=== PATIENT | male | born 1965 | race Caucasian/White ===

== ENCOUNTER 2020-06-05 15:30 | Emergency (ER) | payer OTHER ==
[~2020-06-05] VITALS: Ht 185.4 cm; Wt 90.9 kg
[2020-06-05 15:42] VITALS: BP 138/93; Ht 185.4 cm; Wt 90.9 kg
[2020-06-05] MEDS ORDERED: TORADOL10 MG PO (16:20)
[2020-06-05] MEDS ORDERED: METHOCARBAMOL500 MG PO (16:20)
== END 2020-06-05 16:34 | disposition home or self-care (01) ==
LOC: D.ER 15:30
DX: M54.5 Low back pain (principal); G89.29 Other chronic pain; M51.36 Other intervertebral disc degeneration, lumbar region